=== PATIENT | male | born 1950 | race African-American/Black ===

== ENCOUNTER 2023-10-02 13:54 | Inpatient (IN) | payer MEDICARE, OTHER ==
[~2023-10-02] VITALS: Ht 165.1 cm; Wt 108.3 kg
[2023-10-02] VITALS (7 sets, daily range): BP systolic 124–149; BP diastolic 74–99; PULSE 67–92; RESP 13–20; O2SAT 97–100
[2023-10-02] MEDS: NOREPINEPHRINE 8 MG/250ML KIT 250 ML IV SCH (01:30)
[2023-10-02] MEDS: SODIUM CHLORIDE 0.9% 1,000 ML IVB ONE (14:00)
[2023-10-02] MEDS: NALOXONE HCL 0.4 MG/ML VIAL IV ONE (14:00)
[2023-10-02] MEDS: NALOXONE HCL 0.4 MG/ML VIAL ONE (14:37)
[2023-10-02] MEDS: NALOXONE HCL 1MG/ML 2ML SYRINGE ONE (14:37)
[2023-10-02] MEDS: PROPOFOL 100 ML IV ONE (14:39)
[2023-10-02 14:42] LABS: Basophils # (auto) 0.1 10 ^3/uL (0-0.2); Basophils % (auto) 0.6 % (0.0-2.0); Eosinophils # (auto) 0.2 10 ^3/uL (0-0.8); Eosinophils % (auto) 1.3 % (0.0-7.0); Hematocrit 43.1 % (41.0-53.0); Hemoglobin 13.8 g/dL (13.5-17.5); Lymphocytes # (auto) 5.5 10 ^3/uL (0.4-5.4); Lymphocytes % (auto) 47.6 % (10.0-50.0); Mean Corpuscular Hemoglobin 33.5 pg (28.0-32.0); Mean Corpuscular Hgb Conc. 31.9 g/dL (32.0-36.0); Mean Corpuscular Volume 104.7 fL (80.0-100.0); Monocytes # (auto) 0.9 10 ^3/uL (0-1.3); Monocytes % (auto) 7.4 % (0.0-12.0); Neutrophils % (auto) 43.1 % (37.0-80.0); Nucleated Red Blood Cells % 0.7 %; Red Blood Cells 4.11 10^6/uL (4.5-5.90); Red Cell Distribution Width 16.8 % (11.8-14.3); White Blood Cell 11.6 10^3/uL (4.4-10.8)
[2023-10-02] MEDS: PROPOFOL 100 ML IV SCH (14:45)
[2023-10-02] MEDS: NOREPINEPHRINE 8 MG/250ML KIT 250 ML IV ONE (15:05)
[2023-10-02 15:06] LABS: INR 1.11 (0.9-1.15); Partial Thromboplastin Time 28.2 SEC (24.5-34.5); Prothrombin Time 11.6 sec (9.3-11.8)
[2023-10-02 15:13] LABS: Lactic Acid w/Reflex 7.8 mmol/L (0.4-2.0)
[2023-10-02 15:13] LABS: Base Excess -6.2 mmol/L (-2.0-2.0)
[2023-10-02] MEDS: MIDAZOLAM DRIP 50 mg/50mL 50 ML IV SCH (15:30)
[2023-10-02] MEDS: MIDAZOLAM DRIP 50 mg/50mL 50 ML IV ONE (15:49)
[2023-10-02] MEDS: VANCOMYCIN 1GM/200ML 200 ML IV ONE (16:15)
[2023-10-02] MEDS: PIPERACILLIN-TAZOB 3.375GM 100 ML IV ONE (16:15)
[2023-10-02 18:32] LABS: Alkaline Phosphatase 67 U/L (46-116); Aspartate Aminotransferase 236 U/L (13-40); Blood Alcohol < 3.0 mg/dL (<10); Calcium 9.5 mg/dL (8.5-10.1); Chloride 93 mmol/L (98-107); Glucose 164 mg/dL (74-106); Sodium 136 mmol/L (136-145)
[2023-10-02 18:33] LABS: Bilirubin, Total 1.1 mg/dL (0.2-1.0); Total Protein 7.9 g/dL (5.7-8.2)
[2023-10-02 18:48] LABS: Alanine Aminotransferase 90 U/L (7-40); Albumin 4.4 g/dL (3.2-4.8); Potassium 4.7 mmol/L (3.5-5.1)
[2023-10-02 19:16] LABS: Anion Gap 22 (5-15); Carbon Dioxide 21 mmol/L (20-30)
[2023-10-02 19:29] LABS: BUN/Creatinine Ratio 6.1 (10.0-20.0); Blood Urea Nitrogen 33 mg/dL (9-23)
[2023-10-02 20:51] LABS: Urine Bacteria MOD /hpf (None Seen); Urine Blood 3+ /uL (Negative); Urine Clarity Ex.Turbid (Clear); Urine Color Dark-Brown (Yellow); Urine Mucus FEW (None Seen); Urine Protein, UAD 2+ (Negative); Urine Specific Gravity 1.017 (1.001-1.035); Urine Urobilinogen Normal (Negative); Urine WBC 2241 /hpf (0 - 3); Urine WBC Clumps PRESENT /hpf (None Seen)
[2023-10-02 21:07] LABS: Amphetamine Screen, Urine Neg (NEGATIVE); Barbiturate Scree,Urine Neg (NEGATIVE); Benzodiazephine Screen, Urine Neg (NEGATIVE); Cannabinoid Screen, Urine Neg (NEGATIVE); Cocaine Screen, Urine Neg (NEGATIVE); Opiate Scree,Urine Pos (NEGATIVE); Phencyclidine Screen, Urine Neg (NEGATIVE)
[2023-10-02] MEDS ORDERED: ACETAMINOPHEN 325 MG TAB PO PRN (21:45)
[2023-10-02] MEDS ORDERED: ONDANSETRON HCL 4 MG/2 ML VIAL IV PRN (21:45)
[2023-10-02] MEDS ORDERED: NITROGLYCERIN 0.4 MG SL TAB SL PRN (21:45)
[2023-10-02] MEDS ORDERED: DEXTROSE (50%) 50ML SYRG IV PRN (21:45)
[2023-10-02] MEDS ORDERED: MORPHINE SULFATE INJ 2 MG/ml SYRG IV PRN (21:45)
[2023-10-02 22:41] LABS: Alanine Aminotransferase 85 U/L (7-40); Alkaline Phosphatase 69 U/L (46-116); Anion Gap 13 (5-15); Aspartate Aminotransferase 301 U/L (13-40); BUN/Creatinine Ratio 6.1 (10.0-20.0); Blood Urea Nitrogen 33 mg/dL (9-23); Calcium 9.4 mg/dL (8.5-10.1); Carbon Dioxide 27 mmol/L (20-30); Chloride 94 mmol/L (98-107); Glucose 196 mg/dL (74-106); Potassium 4.7 mmol/L (3.5-5.1); Sodium 134 mmol/L (136-145)
[2023-10-02 22:42] LABS: Albumin 4.1 g/dL (3.2-4.8); Bilirubin, Total 1.3 mg/dL (0.2-1.0); Total Protein 7.5 g/dL (5.7-8.2)
[2023-10-02 22:47] LABS: Base Excess -0.1 mmol/L (-2.0-2.0)
[2023-10-03] VITALS (36 sets, daily range): BP systolic 64–126; BP diastolic 34–70; PULSE 88–151; RESP 20; TEMP 99.3–100.6; O2SAT 94–100
[2023-10-03] MEDS: DOPamine 1600MCG/ML D5W 250 ML IV SCH (02:00)
[2023-10-03] MEDS: ACCU-CHEK COMFORT CURVE STRIP VI SCH (02:30)
[2023-10-03] MEDS: InsuLIN REG 1unit/0.01ml Soln (100units/ml) SC SCH (02:31)
[2023-10-03 06:44] LABS: Alanine Aminotransferase 154 U/L (7-40); Albumin 4.1 g/dL (3.2-4.8); Alkaline Phosphatase 76 U/L (46-116); Anion Gap 15 (5-15); Aspartate Aminotransferase 391 U/L (13-40); BUN/Creatinine Ratio 7.3 (10.0-20.0); Bilirubin, Total 1.1 mg/dL (0.2-1.0); Blood Urea Nitrogen 42 mg/dL (9-23); Calcium 9.1 mg/dL (8.5-10.1); Carbon Dioxide 26 mmol/L (20-30); Chloride 92 mmol/L (98-107); Glucose 220 mg/dL (74-106); Potassium 4.2 mmol/L (3.5-5.1); Sodium 133 mmol/L (136-145); Total Protein 7.5 g/dL (5.7-8.2)
[2023-10-03 07:33] LABS: Basophils # (auto) 0 10 ^3/uL (0-0.2); Basophils % (auto) 0.1 % (0.0-2.0); Eosinophils # (auto) 0 10 ^3/uL (0-0.8); Hematocrit 49.1 % (41.0-53.0); Hemoglobin 16.1 g/dL (13.5-17.5); Lymphocytes # (auto) 0.8 10 ^3/uL (0.4-5.4); Lymphocytes % (auto) 5.7 % (10.0-50.0); Mean Corpuscular Hemoglobin 33.2 pg (28.0-32.0); Mean Corpuscular Hgb Conc. 32.8 g/dL (32.0-36.0); Mean Corpuscular Volume 101.3 fL (80.0-100.0); Neutrophils # (auto) 12.2 10 ^3/uL (1.6-8.6); Neutrophils % (auto) 87.2 % (37.0-80.0); Red Blood Cells 4.85 10^6/uL (4.5-5.90); Red Cell Distribution Width 16.7 % (11.8-14.3)
[2023-10-03 07:55] LABS: Base Excess -0.4 mmol/L (-2.0-2.0)
[2023-10-03] MEDS: ENOXAPARIN SOD 120 MG/0.8 ML SYRINGE SC ONE (08:13)
[2023-10-03] MEDS: LINEZOLID 600MG/300ML 300 ML IV SCH (09:19)
[2023-10-03] MEDS: PIPERACILLIN-TAZOB 3.375GM 100 ML IV SCH (10:31)
[2023-10-03 10:59] LABS: Lactic Acid w/Reflex 3.9 mmol/L (0.4-2.0)
[2023-10-03] MEDS: OPTISON 3ml Vial for INJ IV ONE (11:29)
[2023-10-03] MEDS: ACETAMINOPHEN 650 mg PER 20.3 mL UD GT ONE (11:33)
[2023-10-03] MEDS: ASPirin 81 mg TAB GT ONE (11:33)
[2023-10-03 11:41] LABS: Basophils # (auto) 0 10 ^3/uL (0-0.2); Basophils % (auto) 0.3 % (0.0-2.0); Eosinophils # (auto) 0 10 ^3/uL (0-0.8); Hematocrit 46.1 % (41.0-53.0); Hemoglobin 15.2 g/dL (13.5-17.5); Lymphocytes % (auto) 7.5 % (10.0-50.0); Mean Corpuscular Hemoglobin 33.2 pg (28.0-32.0); Mean Corpuscular Volume 100.5 fL (80.0-100.0); Monocytes # (auto) 0.9 10 ^3/uL (0-1.3); Monocytes % (auto) 6.6 % (0.0-12.0); Neutrophils # (auto) 11.8 10 ^3/uL (1.6-8.6); Neutrophils % (auto) 85.6 % (37.0-80.0); Nucleated Red Blood Cells % 0.6 %; Red Blood Cells 4.59 10^6/uL (4.5-5.90); White Blood Cell 13.8 10^3/uL (4.4-10.8)
[2023-10-03 11:56] LABS: INR 1.18 (0.9-1.15); Partial Thromboplastin Time 35.7 SEC (24.5-34.5); Prothrombin Time 12.4 sec (9.3-11.8)
[2023-10-03 12:10] LABS: Magnesium 2.2 mg/dL (1.6-2.6)
[2023-10-03] MEDS: HEPARIN DRIP/D5W 100UNITS/ML 250 ML IV SCH (17:59)
[2023-10-04] VITALS (101 sets, daily range): BP systolic 81–144; BP diastolic 44–71; PULSE 73–127; RESP 15–35; TEMP 99–99.9; O2SAT 75–100
[2023-10-04] MEDS: HEPARIN DRIP/D5W 100UNITS/ML 250 ML IV SCH ×3 (01:15→19:30)
[2023-10-04 01:18] LABS: INR 1.14 (0.9-1.15); Partial Thromboplastin Time 39.6 SEC (24.5-34.5)
[2023-10-04 04:39] LABS: Alanine Aminotransferase 102 U/L (7-40); Albumin 3.7 g/dL (3.2-4.8); Alkaline Phosphatase 68 U/L (46-116); Anion Gap 18 (5-15); Aspartate Aminotransferase 235 U/L (13-40); BUN/Creatinine Ratio 7.6 (10.0-20.0); Blood Urea Nitrogen 50 mg/dL (9-23); Calcium 9.5 mg/dL (8.7-10.4); Carbon Dioxide 25 mmol/L (20-30); Chloride 91 mmol/L (98-107); Glucose 172 mg/dL (74-106); Potassium 4.1 mmol/L (3.5-5.1); Sodium 134 mmol/L (136-145)
[2023-10-04 04:40] LABS: Bilirubin, Total 0.6 mg/dL (0.2-1.0); Total Protein 6.6 g/dL (5.7-8.2)
[2023-10-04 04:58] LABS: Basophils # (auto) 0 10 ^3/uL (0-0.2); Basophils % (auto) 0.2 % (0.0-2.0); Eosinophils # (auto) 0 10 ^3/uL (0-0.8); Eosinophils % (auto) 0.1 % (0.0-7.0); Hematocrit 46.9 % (41.0-53.0); Hemoglobin 15.5 g/dL (13.5-17.5); Lymphocytes # (auto) 1.3 10 ^3/uL (0.4-5.4); Lymphocytes % (auto) 9.2 % (10.0-50.0); Mean Corpuscular Hemoglobin 33.2 pg (28.0-32.0); Mean Corpuscular Volume 100.6 fL (80.0-100.0); Monocytes % (auto) 7.2 % (0.0-12.0); Neutrophils # (auto) 11.9 10 ^3/uL (1.6-8.6); Neutrophils % (auto) 83.3 % (37.0-80.0); Nucleated Red Blood Cells % 0.6 %; Red Blood Cells 4.66 10^6/uL (4.5-5.90); Red Cell Distribution Width 17.2 % (11.8-14.3); White Blood Cell 14.3 10^3/uL (4.4-10.8)
[2023-10-04] MEDS: SODIUM CHL 0.9% 1000 ML BAG XX ONE (07:00)
[2023-10-04] MEDS: ALBUMIN 25% 100 ML IV ONE (08:38)
[2023-10-04] MEDS ORDERED: VANCOMYCIN PER PHARMACY 0 MG IV SCH (09:45)
[2023-10-04 09:51] LABS: INR 1.11 (0.9-1.15); Partial Thromboplastin Time 42.5 SEC (24.5-34.5); Prothrombin Time 11.7 sec (9.3-11.8)
[2023-10-04] MEDS: AMIODARONE 450mg/250ml AE 250 ML IV ONE (10:18)
[2023-10-04] MEDS: AMIODARONE BOLUS KIT 100 ML IV ONE (10:46)
[2023-10-04 10:51] LABS: Base Excess -3.4 mmol/L (-2.0-2.0)
[2023-10-04] MEDS: AMIODARONE 450mg/250ml AE 250 ML IV SCH ×2 (10:55→17:08)
[2023-10-04] MEDS: PANTOPRAZOLE 40 MG/10 ML VIAL INJ IV SCH (13:24)
[2023-10-04] MEDS: PIPERACILLIN-TAZOB 3.375GM 100 ML IV SCH (14:15)
[2023-10-04] MEDS: ASPirin 81 mg TAB PO SCH (15:19)
[2023-10-04] MEDS: VANCOMYCIN 1GM/200ML 200 ML IV ONE (16:15)
[2023-10-04 18:49] LABS: INR 1.11 (0.9-1.15); Partial Thromboplastin Time 46.7 SEC (24.5-34.5); Prothrombin Time 11.7 sec (9.3-11.8)
[2023-10-05] VITALS (109 sets, daily range): BP systolic 90–138; BP diastolic 53–79; PULSE 71–90; RESP 16–32; TEMP 97.9–100.2; O2SAT 90–100
[2023-10-05] MEDS: ALBUTEROL SULF 2.5 MG/0.5ML(0.5%) NEB SOLN NEB PRN (00:49)
[2023-10-05] MEDS: IPRATROPIUM BROM 0.5 MG/2.5ML INH SOL NEB PRN (00:49)
[2023-10-05 02:05] LABS: Basophils # (auto) 0.1 10 ^3/uL (0-0.2); Basophils % (auto) 0.5 % (0.0-2.0); Eosinophils # (auto) 0 10 ^3/uL (0-0.8); Eosinophils % (auto) 0.3 % (0.0-7.0); Hematocrit 42.1 % (41.0-53.0); Hemoglobin 13.7 g/dL (13.5-17.5); Lymphocytes # (auto) 1.2 10 ^3/uL (0.4-5.4); Lymphocytes % (auto) 9.6 % (10.0-50.0); Mean Corpuscular Hemoglobin 32.8 pg (28.0-32.0); Mean Corpuscular Hgb Conc. 32.6 g/dL (32.0-36.0); Mean Corpuscular Volume 100.5 fL (80.0-100.0); Monocytes # (auto) 1.1 10 ^3/uL (0-1.3); Monocytes % (auto) 8.5 % (0.0-12.0); Neutrophils # (auto) 10.6 10 ^3/uL (1.6-8.6); Neutrophils % (auto) 81.1 % (37.0-80.0); Nucleated Red Blood Cells % 0.2 %; Red Blood Cells 4.19 10^6/uL (4.5-5.90); Red Cell Distribution Width 17.7 % (11.8-14.3)
[2023-10-05 03:52] LABS: Alanine Aminotransferase 68 U/L (7-40); Albumin 3.6 g/dL (3.2-4.8); Alkaline Phosphatase 69 U/L (46-116); Anion Gap 15 (5-15); Aspartate Aminotransferase 152 U/L (13-40); BUN/Creatinine Ratio 6.9 (10.0-20.0); Bilirubin, Total 0.4 mg/dL (0.2-1.0); Blood Urea Nitrogen 43 mg/dL (9-23); Calcium 9.5 mg/dL (8.7-10.4); Carbon Dioxide 24 mmol/L (20-30); Chloride 94 mmol/L (98-107); Glucose 154 mg/dL (74-106); Potassium 4.5 mmol/L (3.5-5.1); Sodium 133 mmol/L (136-145); Total Protein 6.6 g/dL (5.7-8.2)
[2023-10-05 07:48] LABS: Base Excess -0.3 mmol/L (-2.0-2.0)
[2023-10-05 09:44] LABS: INR 1.05 (0.9-1.15); Partial Thromboplastin Time 37.1 SEC (24.5-34.5); Prothrombin Time 11.1 sec (9.3-11.8)
[2023-10-05] MEDS: HEPARIN DRIP/D5W 100UNITS/ML 250 ML IV SCH ×2 (10:15→17:45)
[2023-10-05] MEDS ORDERED: TPN PER PHARMACY 0 ML IV SCH (12:45)
[2023-10-05 12:53] LABS: Magnesium 2.5 mg/dL (1.6-2.6)
[2023-10-05 12:54] LABS: Phosphorus 5.6 mg/dL (2.4-5.1)
[2023-10-05] MEDS: TPN PER PHARMACY IV NR (19:56)
[2023-10-06] VITALS (102 sets, daily range): BP systolic 55–158; BP diastolic 21–101; PULSE 66–95; RESP 16–39; TEMP 97.6–99.5; O2SAT 90–100
[2023-10-06 03:59] LABS: Basophils # (auto) 0 10 ^3/uL (0-0.2); Basophils % (auto) 0.3 % (0.0-2.0); Eosinophils # (auto) 0 10 ^3/uL (0-0.8); Eosinophils % (auto) 0.4 % (0.0-7.0); Hematocrit 35.9 % (41.0-53.0); Hemoglobin 11.8 g/dL (13.5-17.5); Lymphocytes % (auto) 9.9 % (10.0-50.0); Mean Corpuscular Hemoglobin 32.7 pg (28.0-32.0); Mean Corpuscular Hgb Conc. 32.8 g/dL (32.0-36.0); Mean Corpuscular Volume 99.9 fL (80.0-100.0); Monocytes % (auto) 9.5 % (0.0-12.0); Neutrophils # (auto) 8.4 10 ^3/uL (1.6-8.6); Neutrophils % (auto) 79.9 % (37.0-80.0); Nucleated Red Blood Cells % 0.1 %; Red Blood Cells 3.59 10^6/uL (4.5-5.90); Red Cell Distribution Width 17.1 % (11.8-14.3); White Blood Cell 10.5 10^3/uL (4.4-10.8)
[2023-10-06 04:13] LABS: Alanine Aminotransferase 47 U/L (7-40); Albumin 3.4 g/dL (3.2-4.8); Alkaline Phosphatase 58 U/L (46-116); Anion Gap 14 (5-15); Aspartate Aminotransferase 103 U/L (13-40); BUN/Creatinine Ratio 8.2 (10.0-20.0); Calcium 9.2 mg/dL (8.7-10.4); Carbon Dioxide 25 mmol/L (20-30); Chloride 91 mmol/L (98-107); Glucose 192 mg/dL (74-106); Magnesium 2.2 mg/dL (1.6-2.6); Potassium 4.2 mmol/L (3.5-5.1); Sodium 130 mmol/L (136-145)
[2023-10-06 04:14] LABS: Bilirubin, Total 0.4 mg/dL (0.2-1.0); Phosphorus 5.6 mg/dL (2.4-5.1); Total Protein 6.2 g/dL (5.7-8.2)
[2023-10-06 04:41] LABS: Blood Urea Nitrogen 59 mg/dL (9-23)
[2023-10-06 05:33] LABS: INR 1.03 (0.9-1.15); Partial Thromboplastin Time 67.4 SEC (24.5-34.5); Prothrombin Time 10.9 sec (9.3-11.8)
[2023-10-06] MEDS: SODIUM CHL 0.9% 1000 ML BAG XX ONE (07:00)
[2023-10-06 08:12] LABS: Base Excess -1.7 mmol/L (-2.0-2.0)
[2023-10-06 14:30] LABS: INR 0.97 (0.9-1.15); Partial Thromboplastin Time 27.7 SEC (24.5-34.5); Prothrombin Time 10.3 sec (9.3-11.8)
[2023-10-06] MEDS: HEPARIN SODIUM (PORCINE) 5000 UNITS/ML 1ML VIAL IV ONE (16:01)
[2023-10-06] MEDS: HEPARIN DRIP/D5W 100UNITS/ML 250 ML IV SCH (18:03)
[2023-10-06] MEDS ORDERED: [UNRECOGNIZED DRUG - OTHER] IV NR (20:00)
[2023-10-06] MEDS ORDERED: SODIUM CHLORIDE IV NR (20:00)
[2023-10-06] MEDS ORDERED: MAGNESIUM SULF IV NR (20:00)
[2023-10-06] MEDS ORDERED: POTASSIUM CHLORIDE IV NR (20:00)
[2023-10-06] MEDS: POTASSIUM CHLORIDE IV NR (20:09)
[2023-10-06] MEDS: [UNRECOGNIZED DRUG - OTHER] IV NR (20:09)
[2023-10-06] MEDS: MAGNESIUM SULF IV NR (20:09)
[2023-10-06] MEDS: SODIUM CHLORIDE IV NR (20:09)
[2023-10-06] MEDS: VANCOMYCIN 500 MG in D5W 5% 100 ML IV ONE (20:10)
[2023-10-06 22:14] LABS: INR 1.02 (0.9-1.15); Prothrombin Time 10.8 sec (9.3-11.8)
[2023-10-06 22:20] LABS: Partial Thromboplastin Time 75.1 SEC (24.5-34.5)
[2023-10-07] VITALS (103 sets, daily range): BP systolic 92–171; BP diastolic 28–72; PULSE 72–91; RESP 15–40; TEMP 97.3–98.9; O2SAT 79–100
[2023-10-07 03:38] LABS: Alanine Aminotransferase 39 U/L (7-40); Albumin 3.3 g/dL (3.2-4.8); Alkaline Phosphatase 58 U/L (46-116); Anion Gap 10 (5-15); Aspartate Aminotransferase 86 U/L (13-40); BUN/Creatinine Ratio 7.3 (10.0-20.0); Calcium 9.1 mg/dL (8.7-10.4); Carbon Dioxide 27 mmol/L (20-30); Chloride 96 mmol/L (98-107); Glucose 200 mg/dL (74-106); Magnesium 2.1 mg/dL (1.6-2.6); Potassium 3.5 mmol/L (3.5-5.1); Sodium 133 mmol/L (136-145)
[2023-10-07 03:39] LABS: Bilirubin, Total 0.4 mg/dL (0.2-1.0); Phosphorus 3.5 mg/dL (2.4-5.1); Total Protein 6.1 g/dL (5.7-8.2)
[2023-10-07 03:41] LABS: INR 1.04 (0.9-1.15)
[2023-10-07 03:44] LABS: Partial Thromboplastin Time 72.3 SEC (24.5-34.5)
[2023-10-07 03:45] LABS: Blood Urea Nitrogen 36 mg/dL (9-23)
[2023-10-07 07:15] LABS: Base Excess 2.4 mmol/L (-2.0-2.0)
[2023-10-07 08:47] LABS: Hepatitis B Surface Antigen Negative (Negative)
[2023-10-07 09:07] LABS: Hepatitis A Ab IgM Negative
[2023-10-07 09:08] LABS: Hepatitis B Core IgM Negative
[2023-10-07 09:26] LABS: INR 1.02 (0.9-1.15); Partial Thromboplastin Time 69.9 SEC (24.5-34.5); Prothrombin Time 10.8 sec (9.3-11.8)
[2023-10-07 09:26] LABS: Hepatitis C Antibody Reactive (Negative)
[2023-10-07] MEDS: AMIODARONE HCL 200 MG TAB PO ONE (12:07)
[2023-10-07] MEDS: ENOXAPARIN SOD 100 MG/1 ML SYRINGE SC SCH (12:07)
[2023-10-07] MEDS: CEFEPIME 1GM/ 50ML 50 ML IV SCH (16:54)
[2023-10-07] MEDS ORDERED: TPN PER PHARMACY IV NR (20:00)
[2023-10-07] MEDS: Nepro With Carb Steady 1 Liter Bottle GT SCH (21:53)
[2023-10-07] MEDS: AMIODARONE HCL 200 MG TAB PO SCH (22:19)
[2023-10-08] VITALS (111 sets, daily range): BP systolic 93–141; BP diastolic 35–64; PULSE 77–87; RESP 11–29; TEMP 97.9–99; O2SAT 98–100
[2023-10-08 04:00] LABS: Basophils # (auto) 0 10 ^3/uL (0-0.2); Basophils % (auto) 0.6 % (0.0-2.0); Eosinophils # (auto) 0 10 ^3/uL (0-0.8); Eosinophils % (auto) 0.3 % (0.0-7.0); Hematocrit 32.8 % (41.0-53.0); Hemoglobin 10.9 g/dL (13.5-17.5); Lymphocytes # (auto) 0.7 10 ^3/uL (0.4-5.4); Lymphocytes % (auto) 9.3 % (10.0-50.0); Mean Corpuscular Hemoglobin 33.3 pg (28.0-32.0); Mean Corpuscular Hgb Conc. 33.4 g/dL (32.0-36.0); Mean Corpuscular Volume 99.9 fL (80.0-100.0); Monocytes # (auto) 0.7 10 ^3/uL (0-1.3); Monocytes % (auto) 9.1 % (0.0-12.0); Neutrophils # (auto) 6.2 10 ^3/uL (1.6-8.6); Neutrophils % (auto) 80.7 % (37.0-80.0); Nucleated Red Blood Cells % 0.1 %; Red Blood Cells 3.29 10^6/uL (4.5-5.90); White Blood Cell 7.7 10^3/uL (4.4-10.8)
[2023-10-08 04:05] LABS: Alanine Aminotransferase 30 U/L (7-40); Albumin 3.4 g/dL (3.2-4.8); Alkaline Phosphatase 71 U/L (46-116); Anion Gap 12 (5-15); Aspartate Aminotransferase 107 U/L (13-40); BUN/Creatinine Ratio 8.4 (10.0-20.0); Bilirubin, Total 0.4 mg/dL (0.2-1.0); Calcium 9.1 mg/dL (8.5-10.1); Carbon Dioxide 25 mmol/L (20-30); Chloride 95 mmol/L (98-107); Glucose 138 mg/dL (74-106); Phosphorus 4.7 mg/dL (2.4-5.1); Potassium 4.2 mmol/L (3.5-5.1); Sodium 132 mmol/L (136-145); Total Protein 6.1 g/dL (5.7-8.2)
[2023-10-08 04:10] LABS: Blood Urea Nitrogen 49 mg/dL (9-23)
[2023-10-08 04:45] LABS: Magnesium 2.2 mg/dL (1.6-2.6)
[2023-10-08 07:01] LABS: Base Excess -0.7 mmol/L (-2.0-2.0)
[2023-10-08] MEDS: ENOXAPARIN SOD 100 MG/1 ML SYRINGE SC SCH (12:00)
[2023-10-09] VITALS (92 sets, daily range): BP systolic 105–170; BP diastolic 37–87; PULSE 73–96; RESP 16–29; TEMP 97.3–98; O2SAT 98–100
[2023-10-09 04:25] LABS: Basophils # (auto) 0 10 ^3/uL (0-0.2); Basophils % (auto) 0.3 % (0.0-2.0); Eosinophils # (auto) 0.1 10 ^3/uL (0-0.8); Eosinophils % (auto) 1.1 % (0.0-7.0); Hematocrit 32.3 % (41.0-53.0); Hemoglobin 10.6 g/dL (13.5-17.5); Lymphocytes # (auto) 0.7 10 ^3/uL (0.4-5.4); Lymphocytes % (auto) 9.4 % (10.0-50.0); Mean Corpuscular Hemoglobin 32.6 pg (28.0-32.0); Mean Corpuscular Hgb Conc. 32.8 g/dL (32.0-36.0); Mean Corpuscular Volume 99.5 fL (80.0-100.0); Monocytes # (auto) 0.9 10 ^3/uL (0-1.3); Monocytes % (auto) 12.1 % (0.0-12.0); Neutrophils # (auto) 5.7 10 ^3/uL (1.6-8.6); Neutrophils % (auto) 77.1 % (37.0-80.0); Nucleated Red Blood Cells % 0.1 %; Red Blood Cells 3.24 10^6/uL (4.5-5.90); Red Cell Distribution Width 17.1 % (11.8-14.3); White Blood Cell 7.4 10^3/uL (4.4-10.8)
[2023-10-09 04:32] LABS: Carbon Dioxide 26 mmol/L (20-30); Chloride 95 mmol/L (98-107); Potassium 4.8 mmol/L (3.5-5.1)
[2023-10-09 04:33] LABS: Anion Gap 11 (5-15); Sodium 132 mmol/L (136-145)
[2023-10-09 04:34] LABS: Calcium 9.5 mg/dL (8.5-10.1)
[2023-10-09 04:39] LABS: BUN/Creatinine Ratio 8.9 (10.0-20.0); Glucose 138 mg/dL (74-106)
[2023-10-09 04:40] LABS: Blood Urea Nitrogen 60 mg/dL (9-23)
[2023-10-09 06:43] LABS: Base Excess -0.1 mmol/L (-2.0-2.0)
[2023-10-09] MEDS: ATORVASTATIN 20 MG TAB GT ONE (10:14)
[2023-10-09] MEDS: SODIUM CHL 0.9% 1000 ML BAG XX ONE (17:00)
[2023-10-09] MEDS: VANCOMYCIN 1GM/200ML 200 ML IV ONE (20:32)
[2023-10-09] MEDS: ATORVASTATIN 20 MG TAB GT SCH (20:33)
[2023-10-10] VITALS (37 sets, daily range): BP systolic 103–175; BP diastolic 34–84; PULSE 73–99; RESP 15–22; TEMP 97.8–98.4; O2SAT 98–100
[2023-10-10 06:51] LABS: Base Excess 2.1 mmol/L (-2.0-2.0)
[2023-10-11] VITALS (45 sets, daily range): BP systolic 104–150; BP diastolic 27–63; PULSE 72–88; RESP 16–29; TEMP 97.6–98.4; O2SAT 93–100
[2023-10-11 04:05] LABS: Basophils # (auto) 0 10 ^3/uL (0-0.2); Basophils % (auto) 0.1 % (0.0-2.0); Eosinophils # (auto) 0 10 ^3/uL (0-0.8); Eosinophils % (auto) 0.4 % (0.0-7.0); Hematocrit 33.5 % (41.0-53.0); Hemoglobin 11.3 g/dL (13.5-17.5); Lymphocytes # (auto) 0.8 10 ^3/uL (0.4-5.4); Lymphocytes % (auto) 6.8 % (10.0-50.0); Mean Corpuscular Hemoglobin 33.4 pg (28.0-32.0); Mean Corpuscular Hgb Conc. 33.6 g/dL (32.0-36.0); Mean Corpuscular Volume 99.3 fL (80.0-100.0); Monocytes # (auto) 1.2 10 ^3/uL (0-1.3); Monocytes % (auto) 10.8 % (0.0-12.0); Neutrophils % (auto) 81.9 % (37.0-80.0); Nucleated Red Blood Cells % 0.1 %; Red Blood Cells 3.38 10^6/uL (4.5-5.90); Red Cell Distribution Width 17.1 % (11.8-14.3)
[2023-10-11 04:13] LABS: Anion Gap 14 (5-15); Carbon Dioxide 25 mmol/L (20-30); Chloride 95 mmol/L (98-107); Potassium 4.5 mmol/L (3.5-5.1); Sodium 134 mmol/L (136-145)
[2023-10-11 04:19] LABS: BUN/Creatinine Ratio 9.7 (10.0-20.0); Blood Urea Nitrogen 58 mg/dL (9-23); Glucose 134 mg/dL (74-106)
[2023-10-11 06:57] LABS: Base Excess -0.8 mmol/L (-2.0-2.0)
[2023-10-11] MEDS: SODIUM CHL 0.9% 1000 ML BAG XX ONE (07:00)
[2023-10-12] VITALS (44 sets, daily range): BP systolic 87–147; BP diastolic 34–69; PULSE 69–86; RESP 16–29; TEMP 97.5–98.1; O2SAT 93–100
[2023-10-12 03:58] LABS: Basophils # (auto) 0 10 ^3/uL (0-0.2); Basophils % (auto) 0.3 % (0.0-2.0); Eosinophils # (auto) 0 10 ^3/uL (0-0.8); Eosinophils % (auto) 0.3 % (0.0-7.0); Hematocrit 33.7 % (41.0-53.0); Lymphocytes # (auto) 0.8 10 ^3/uL (0.4-5.4); Lymphocytes % (auto) 6.7 % (10.0-50.0); Mean Corpuscular Hgb Conc. 32.5 g/dL (32.0-36.0); Mean Corpuscular Volume 98.4 fL (80.0-100.0); Monocytes % (auto) 8.3 % (0.0-12.0); Neutrophils # (auto) 10.4 10 ^3/uL (1.6-8.6); Neutrophils % (auto) 84.4 % (37.0-80.0); Red Blood Cells 3.43 10^6/uL (4.5-5.90); Red Cell Distribution Width 16.5 % (11.8-14.3); White Blood Cell 12.3 10^3/uL (4.4-10.8)
[2023-10-12 04:35] LABS: Chloride 96 mmol/L (98-107); Potassium 4.7 mmol/L (3.5-5.1); Sodium 135 mmol/L (136-145)
[2023-10-12 04:36] LABS: Anion Gap 15 (5-15); Calcium 9.8 mg/dL (8.5-10.1); Carbon Dioxide 24 mmol/L (20-30)
[2023-10-12 04:41] LABS: Glucose 118 mg/dL (74-106)
[2023-10-12 04:43] LABS: Blood Urea Nitrogen 71 mg/dL (9-23)
[2023-10-12] MEDS: ENOXAPARIN SOD 30 MG/0.3 ML SYRINGE SC ONE (12:45)
[2023-10-12] MEDS: ALBUMIN 25% 100 ML IV STA (17:50)
[2023-10-13] VITALS (60 sets, daily range): BP systolic 109–170; BP diastolic 30–65; PULSE 68–88; RESP 14–24; TEMP 98.2–99.2; O2SAT 91–99
[2023-10-13 04:04] LABS: Basophils # (auto) 0 10 ^3/uL (0-0.2); Basophils % (auto) 0.3 % (0.0-2.0); Eosinophils # (auto) 0 10 ^3/uL (0-0.8); Hematocrit 34.4 % (41.0-53.0); Hemoglobin 11.2 g/dL (13.5-17.5); Lymphocytes # (auto) 0.5 10 ^3/uL (0.4-5.4); Mean Corpuscular Hemoglobin 32.2 pg (28.0-32.0); Mean Corpuscular Hgb Conc. 32.5 g/dL (32.0-36.0); Monocytes # (auto) 0.5 10 ^3/uL (0-1.3); Monocytes % (auto) 3.9 % (0.0-12.0); Neutrophils # (auto) 11.8 10 ^3/uL (1.6-8.6); Neutrophils % (auto) 91.8 % (37.0-80.0); Nucleated Red Blood Cells % 0.1 %; Red Blood Cells 3.48 10^6/uL (4.5-5.90); White Blood Cell 12.8 10^3/uL (4.4-10.8)
[2023-10-13 04:13] LABS: Alanine Aminotransferase 22 U/L (7-40); Alkaline Phosphatase 87 U/L (46-116); Anion Gap 17 (5-15); BUN/Creatinine Ratio 8.7 (10.0-20.0); Calcium 9.8 mg/dL (8.5-10.1); Carbon Dioxide 22 mmol/L (20-30); Chloride 95 mmol/L (98-107); Glucose 141 mg/dL (74-106); Potassium 4.4 mmol/L (3.5-5.1); Sodium 134 mmol/L (136-145)
[2023-10-13 04:14] LABS: Albumin 3.6 g/dL (3.2-4.8); Aspartate Aminotransferase 91 U/L (13-40); Bilirubin, Total 0.4 mg/dL (0.2-1.0); Total Protein 7.2 g/dL (5.7-8.2)
[2023-10-13 04:16] LABS: Blood Urea Nitrogen 41 mg/dL (9-23)
[2023-10-13 07:19] LABS: Base Excess 0.9 mmol/L (-2.0-2.0)
[2023-10-13] MEDS ORDERED: ENOXAPARIN SOD 30 MG/0.3 ML SYRINGE SC SCH (10:00)
[2023-10-13] MEDS: ENOXAPARIN SOD 30 MG/0.3 ML SYRINGE SC ONE (14:30)
[2023-10-14] VITALS (114 sets, daily range): BP systolic 108–176; BP diastolic 28–109; PULSE 64–82; RESP 10–30; TEMP 96.8–98.1; O2SAT 90–100
[2023-10-14 04:14] LABS: Basophils # (auto) 0.1 10 ^3/uL (0-0.2); Basophils % (auto) 0.5 % (0.0-2.0); Eosinophils # (auto) 0 10 ^3/uL (0-0.8); Eosinophils % (auto) 0.4 % (0.0-7.0); Hematocrit 33.6 % (41.0-53.0); Hemoglobin 11.1 g/dL (13.5-17.5); Lymphocytes # (auto) 0.9 10 ^3/uL (0.4-5.4); Lymphocytes % (auto) 6.7 % (10.0-50.0); Mean Corpuscular Hemoglobin 32.5 pg (28.0-32.0); Mean Corpuscular Hgb Conc. 33.1 g/dL (32.0-36.0); Mean Corpuscular Volume 98.2 fL (80.0-100.0); Monocytes % (auto) 7.3 % (0.0-12.0); Neutrophils # (auto) 11.6 10 ^3/uL (1.6-8.6); Neutrophils % (auto) 85.1 % (37.0-80.0); Red Blood Cells 3.42 10^6/uL (4.5-5.90); Red Cell Distribution Width 17.1 % (11.8-14.3); White Blood Cell 13.6 10^3/uL (4.4-10.8)
[2023-10-14 04:24] LABS: INR 1.04 (0.9-1.15); Partial Thromboplastin Time 28.5 SEC (24.5-34.5)
[2023-10-14 07:03] LABS: Base Excess -0.9 mmol/L (-2.0-2.0)
[2023-10-14] MEDS: ENOXAPARIN SOD 30 MG/0.3 ML SYRINGE SC SCH (07:45)
[2023-10-14] MEDS: LIDOCAINE 1%-Mpf/Epinephrine 1:200,000 30ml VIAL ONE (10:39)
[2023-10-14] MEDS: BUPIVACAINE 0.25% INJ 50ML VIAL ONE (10:39)
[2023-10-14] MEDS ORDERED: ROCURONIUM 10MG/ML 10ML VIAL IV ONE (11:05)
[2023-10-14] MEDS ORDERED: ceFAZolin 1GM VL ONE (11:06)
[2023-10-14] MEDS: hydrALAZINE HCL 20 MG/ML VL ONE (12:34)
[2023-10-14] MEDS: hydrALAZINE HCL 20 MG/ML VL IV PRN (12:34)
[2023-10-15] VITALS (64 sets, daily range): BP systolic 107–154; BP diastolic 30–65; PULSE 70–88; RESP 15–27; TEMP 97.9–98.6; O2SAT 94–100
[2023-10-15 06:50] LABS: Base Excess 0.3 mmol/L (-2.0-2.0)
[2023-10-15 09:43] LABS: Alanine Aminotransferase 12 U/L (7-40); Albumin 3.4 g/dL (3.2-4.8); Alkaline Phosphatase 78 U/L (46-116); Anion Gap 13 (5-15); Aspartate Aminotransferase 93 U/L (13-40); BUN/Creatinine Ratio 10.4 (10.0-20.0); Bilirubin, Total 0.3 mg/dL (0.2-1.0); Blood Urea Nitrogen 68 mg/dL (9-23); Calcium 9.6 mg/dL (8.5-10.1); Carbon Dioxide 24 mmol/L (20-30); Chloride 98 mmol/L (98-107); Glucose 134 mg/dL (74-106); Potassium 5.1 mmol/L (3.5-5.1); Sodium 135 mmol/L (136-145); Total Protein 7.1 g/dL (5.7-8.2)
[2023-10-15 09:49] LABS: Basophils # (auto) 0 10 ^3/uL (0-0.2); Basophils % (auto) 0.2 % (0.0-2.0); Eosinophils # (auto) 0 10 ^3/uL (0-0.8); Eosinophils % (auto) 0.2 % (0.0-7.0); Hematocrit 34.7 % (41.0-53.0); Lymphocytes # (auto) 0.6 10 ^3/uL (0.4-5.4); Lymphocytes % (auto) 4.9 % (10.0-50.0); Mean Corpuscular Hemoglobin 31.6 pg (28.0-32.0); Mean Corpuscular Hgb Conc. 31.7 g/dL (32.0-36.0); Mean Corpuscular Volume 99.6 fL (80.0-100.0); Monocytes # (auto) 0.9 10 ^3/uL (0-1.3); Monocytes % (auto) 6.7 % (0.0-12.0); Neutrophils # (auto) 11.7 10 ^3/uL (1.6-8.6); Red Blood Cells 3.48 10^6/uL (4.5-5.90); Red Cell Distribution Width 16.8 % (11.8-14.3); White Blood Cell 13.3 10^3/uL (4.4-10.8)
[2023-10-15] MEDS: ALBUMIN 25% 100 ML IV ONE (12:04)
[2023-10-15] MEDS: SODIUM CHL 0.9% 1000 ML BAG XX ONE (12:04)
[2023-10-16] VITALS (58 sets, daily range): BP systolic 105–151; BP diastolic 46–71; PULSE 78–93; RESP 14–27; TEMP 97.6–99.2; O2SAT 91–100
[2023-10-16 04:14] LABS: Basophils # (auto) 0 10 ^3/uL (0-0.2); Basophils % (auto) 0.3 % (0.0-2.0); Eosinophils # (auto) 0 10 ^3/uL (0-0.8); Eosinophils % (auto) 0.4 % (0.0-7.0); Hematocrit 32.6 % (41.0-53.0); Hemoglobin 10.9 g/dL (13.5-17.5); Lymphocytes # (auto) 0.6 10 ^3/uL (0.4-5.4); Lymphocytes % (auto) 4.9 % (10.0-50.0); Mean Corpuscular Hemoglobin 32.9 pg (28.0-32.0); Mean Corpuscular Hgb Conc. 33.4 g/dL (32.0-36.0); Mean Corpuscular Volume 98.7 fL (80.0-100.0); Monocytes # (auto) 0.9 10 ^3/uL (0-1.3); Monocytes % (auto) 6.7 % (0.0-12.0); Neutrophils # (auto) 11.4 10 ^3/uL (1.6-8.6); Neutrophils % (auto) 87.7 % (37.0-80.0); Red Cell Distribution Width 16.7 % (11.8-14.3)
[2023-10-16 04:19] LABS: Chloride 97 mmol/L (98-107); Sodium 137 mmol/L (136-145)
[2023-10-16 04:20] LABS: Anion Gap 13 (5-15); Calcium 9.9 mg/dL (8.5-10.1); Carbon Dioxide 27 mmol/L (20-30)
[2023-10-16 04:25] LABS: BUN/Creatinine Ratio 8.8 (10.0-20.0); Glucose 130 mg/dL (74-106)
[2023-10-16 04:34] LABS: Blood Urea Nitrogen 41 mg/dL (9-23)
[2023-10-16 07:14] LABS: Base Excess -0.2 mmol/L (-2.0-2.0)
[2023-10-16 09:10] LABS: INR 1.07 (0.9-1.15); Partial Thromboplastin Time 28.5 SEC (24.5-34.5); Prothrombin Time 11.3 sec (9.3-11.8)
[2023-10-16] MEDS: Nepro With Carb Steady 1 Liter Bottle GT SCH (13:34)
[2023-10-16] MEDS: Pro-Stat SF 30ml Vanilla GT SCH (13:34)
[2023-10-17] VITALS (105 sets, daily range): BP systolic 42–223; BP diastolic 11–185; PULSE 46–158; RESP 12–96; TEMP 97.8–98.7; O2SAT 28–100
[2023-10-17 05:38] LABS: Basophils # (auto) 0 10 ^3/uL (0-0.2); Eosinophils # (auto) 0 10 ^3/uL (0-0.8); Eosinophils % (auto) 0.1 % (0.0-7.0); Hematocrit 34.2 % (41.0-53.0); Hemoglobin 11.2 g/dL (13.5-17.5); Lymphocytes # (auto) 0.6 10 ^3/uL (0.4-5.4); Lymphocytes % (auto) 3.3 % (10.0-50.0); Mean Corpuscular Hemoglobin 32.1 pg (28.0-32.0); Mean Corpuscular Hgb Conc. 32.7 g/dL (32.0-36.0); Mean Corpuscular Volume 98.2 fL (80.0-100.0); Monocytes # (auto) 1.1 10 ^3/uL (0-1.3); Monocytes % (auto) 6.8 % (0.0-12.0); Neutrophils # (auto) 15.1 10 ^3/uL (1.6-8.6); Neutrophils % (auto) 89.8 % (37.0-80.0); Red Blood Cells 3.48 10^6/uL (4.5-5.90); Red Cell Distribution Width 16.5 % (11.8-14.3); White Blood Cell 16.8 10^3/uL (4.4-10.8)
[2023-10-17 05:49] LABS: Chloride 98 mmol/L (98-107); Potassium 3.9 mmol/L (3.5-5.1); Sodium 137 mmol/L (136-145)
[2023-10-17 05:50] LABS: Anion Gap 13 (5-15); Calcium 9.9 mg/dL (8.5-10.1); Carbon Dioxide 26 mmol/L (20-30)
[2023-10-17 05:55] LABS: BUN/Creatinine Ratio 10.6 (10.0-20.0); Glucose 151 mg/dL (74-106)
[2023-10-17 05:57] LABS: Blood Urea Nitrogen 60 mg/dL (9-23)
[2023-10-17] MEDS: SODIUM CHL 0.9% 1000 ML BAG XX ONE (07:00)
[2023-10-17 08:32] LABS: Base Excess -1.2 mmol/L (-2.0-2.0)
[2023-10-17] MEDS: VASOPRESSIN 20 UNITS in SODIUM CHL 0.9% 99 ML IV SCH (14:01)
[2023-10-17] MEDS: VASOPRESSIN 20 UNIT/ML ONE (14:02)
[2023-10-17] MEDS: ATROPINE SULF 1 MG/10ml SYR IV ONE (14:08)
[2023-10-17] MEDS: PHENYLEPHRINE IV 250 ML IV SCH (14:17)
[2023-10-17] MEDS: PHENYLEPHRINE IV 250 ML IV ONE (14:17)
[2023-10-17] MEDS: EPINEPHrine HCL 250 ML IV ONE (14:28)
[2023-10-17] MEDS: EPINEPHrine HCL 250 ML IV SCH (14:28)
[2023-10-17 14:39] LABS: Basophils # (auto) 0.1 10 ^3/uL (0-0.2); Basophils % (auto) 0.6 % (0.0-2.0); Lymphocytes # (auto) 3.3 10 ^3/uL (0.4-5.4); Neutrophils % (auto) 77.1 % (37.0-80.0); Nucleated Red Blood Cells % 0.1 %
[2023-10-17 14:41] LABS: Eosinophils # (auto) 0 10 ^3/uL (0-0.8); Eosinophils % (auto) 0.2 % (0.0-7.0); Hematocrit 32.3 % (41.0-53.0); Mean Corpuscular Hemoglobin 31.5 pg (28.0-32.0); Mean Corpuscular Hgb Conc. 30.8 g/dL (32.0-36.0); Mean Corpuscular Volume 102.2 fL (80.0-100.0); Monocytes # (auto) 1.5 10 ^3/uL (0-1.3); Monocytes % (auto) 7.1 % (0.0-12.0); Neutrophils # (auto) 16.9 10 ^3/uL (1.6-8.6); Red Blood Cells 3.16 10^6/uL (4.5-5.90); Red Cell Distribution Width 17.5 % (11.8-14.3); White Blood Cell 21.9 10^3/uL (4.4-10.8)
[2023-10-17 14:41] LABS: Base Excess -11.2 mmol/L (-2.0-2.0)
[2023-10-17] MEDS: SODIUM BICARB 8.4% 50Meq/50ml SYR INJ ONE (14:51)
[2023-10-17 14:52] LABS: Anion Gap 23 (5-15); Carbon Dioxide 21 mmol/L (20-30); Chloride 100 mmol/L (98-107); Potassium 4.5 mmol/L (3.5-5.1); Sodium 144 mmol/L (136-145)
[2023-10-17 14:53] LABS: Calcium 9.2 mg/dL (8.5-10.1)
[2023-10-17 14:58] LABS: Blood Urea Nitrogen 63 mg/dL (9-23); Magnesium 2.7 mg/dL (1.6-2.6)
[2023-10-17 14:59] LABS: Glucose 287 mg/dL (74-106)
[2023-10-17] MEDS: AMIODARONE HCL (50 MG/ ML) 3 ML VIAL IV PRN (15:11)
[2023-10-17] MEDS: SODIUM CHLORIDE 0.9% 200 ML IV ONE (15:24)
[2023-10-17] MEDS: SODIUM BICARB 8.4% 50Meq/50ml SYR Vial IV ONE (15:24)
[2023-10-17] MEDS: SODIUM BICARB 50mEq/50ml Vial 150 ML in D5W 5% 1,000 ML IV SCH (15:25)
[2023-10-17] MEDS: fentaNYL Drip 2500mCg/250mlNS 250 ML IV SCH (15:36)
[2023-10-17] MEDS: fentaNYL Drip 2500mCg/250mlNS 250 ML IV ONE (15:50)
[2023-10-17] MEDS: PHENYLEPHRINE INJ 80 MG in SODIUM CHL 0.9% 242 ML IV SCH (19:31)
[2023-10-17] MEDS: NOREPINEPHRINE BITARTRATE 32 MG in SODIUM CHL 0.9% 218 ML IV SCH (19:31)
[2023-10-17] MEDS: EPOETIN ALFA-EPBX 4,000 UNIT/ML VIAL SC ONE (21:36)
[2023-10-18] VITALS (93 sets, daily range): BP systolic 49–218; BP diastolic 12–133; PULSE 80–107; RESP 15–20; TEMP 97.1–99.3; O2SAT 73–100
[2023-10-18 01:15] LABS: Base Excess -1.7 mmol/L (-2.0-2.0)
[2023-10-18 09:25] LABS: Alanine Aminotransferase 907 U/L (7-40); Albumin 3.3 g/dL (3.2-4.8); Alkaline Phosphatase 121 U/L (46-116); Anion Gap 14 (5-15); BUN/Creatinine Ratio 10.7 (10.0-20.0); Bilirubin, Total 0.7 mg/dL (0.2-1.0); Blood Urea Nitrogen 58 mg/dL (9-23); Calcium 9.5 mg/dL (8.5-10.1); Carbon Dioxide 29 mmol/L (20-30); Chloride 96 mmol/L (98-107); Glucose 206 mg/dL (74-106); Potassium 4.8 mmol/L (3.5-5.1); Sodium 139 mmol/L (136-145); Total Protein 7.2 g/dL (5.7-8.2)
[2023-10-18] MEDS ORDERED: CEFEPIME 1GM/ 50ML 50 ML IV ONE (09:30)
[2023-10-18 09:36] LABS: Aspartate Aminotransferase 3783 U/L (13-40)
[2023-10-18 10:48] LABS: Base Excess 5.8 mmol/L (-2.0-2.0)
[2023-10-18] MEDS: CEFEPIME 1GM/ 50ML 50 ML IV SCH (10:51)
[2023-10-18] MEDS: HYDROCORTISONE SOD SUCC 100 MG/2ML INJ VIAL IV ONE (11:32)
[2023-10-18] MEDS: HYDROCORTISONE SOD SUCC 100 MG/2ML INJ VIAL IV SCH (21:47)
[2023-10-19] VITALS (107 sets, daily range): BP systolic 93–207; BP diastolic 16–83; PULSE 64–99; RESP 5–26; TEMP 97–98.8; O2SAT 71–100
[2023-10-19] MEDS ORDERED: ATROPINE SULF 1 MG/10ml SYR IM ONE (04:49)
[2023-10-19] MEDS ORDERED: AMIODARONE HCL (50 MG/ ML) 3 ML VIAL IV ONE (04:49)
[2023-10-19 06:39] LABS: Basophils # (auto) 0 10 ^3/uL (0-0.2); Basophils % (auto) 0.3 % (0.0-2.0); Eosinophils # (auto) 0 10 ^3/uL (0-0.8); Eosinophils % (auto) 0.1 % (0.0-7.0); Hemoglobin 11.1 g/dL (13.5-17.5); Lymphocytes # (auto) 0.6 10 ^3/uL (0.4-5.4); Lymphocytes % (auto) 4.1 % (10.0-50.0); Mean Corpuscular Hemoglobin 32.2 pg (28.0-32.0); Mean Corpuscular Hgb Conc. 32.8 g/dL (32.0-36.0); Mean Corpuscular Volume 98.3 fL (80.0-100.0); Monocytes % (auto) 6.7 % (0.0-12.0); Neutrophils # (auto) 13.6 10 ^3/uL (1.6-8.6); Neutrophils % (auto) 88.8 % (37.0-80.0); Nucleated Red Blood Cells % 0.1 %; Red Blood Cells 3.46 10^6/uL (4.5-5.90); White Blood Cell 15.4 10^3/uL (4.4-10.8)
[2023-10-19 06:52] LABS: Chloride 92 mmol/L (98-107); Potassium 4.4 mmol/L (3.5-5.1); Sodium 138 mmol/L (136-145)
[2023-10-19 06:53] LABS: Anion Gap 13 (5-15); Calcium 9.6 mg/dL (8.5-10.1); Carbon Dioxide 33 mmol/L (20-30)
[2023-10-19 06:58] LABS: BUN/Creatinine Ratio 13.4 (10.0-20.0); Glucose 238 mg/dL (74-106)
[2023-10-19 06:59] LABS: Blood Urea Nitrogen 76 mg/dL (9-23)
[2023-10-19] MEDS: SODIUM CHL 0.9% 1000 ML BAG XX ONE (07:00)
[2023-10-19 09:04] LABS: Base Excess 8.1 mmol/L (-2.0-2.0)
[2023-10-19] MEDS: ENOXAPARIN SOD 100 MG/1 ML SYRINGE SC SCH (10:21)
[2023-10-19] MEDS ORDERED: EPINEPHrine HCL 1 MG/10 ML SYRG ONE (23:59)
[2023-10-20] MEDS ORDERED: CALCIUM CHLOR(10%) 100MG/ML 10ML SYRINGE IV ONE (04:49)
[2023-10-20] MEDS ORDERED: SODIUM CHL 0.9% 1000 ML BAG XX ONE (07:00)
== END 2023-10-20 04:50 | DRG 4 ==
LOC: EDBD 13:54 → ER 13:54 → TELE 21:44 → ICU WEST 10-03 17:07 → DOU IN ICU 10-16 04:04 → ICU CENTRL 10-17 20:42
PROVIDERS: ADMIT Internal Medicine Pulmonary Disease; ATTEND Internal Medicine Pulmonary Disease
PROC: 5A1955Z Respiratory Ventilation, Greater than 96 Consecutive Hours (ICD-10-PCS; principal; 2023-10-02)
PROC: 0BH17EZ Insertion of Endotracheal Airway into Trachea, Via Natural or Artificial Opening (ICD-10-PCS; 2023-10-02)
PROC: 5A12012 Performance of Cardiac Output, Single, Manual (ICD-10-PCS; 2023-10-03)
PROC: 02HV33Z Insertion of Infusion Device into Superior Vena Cava, Percutaneous Approach (ICD-10-PCS; 2023-10-04)
PROC: B548ZZA Ultrasonography of Superior Vena Cava, Guidance (ICD-10-PCS; 2023-10-04)
PROC: 5A1D70Z Performance of Urinary Filtration, Intermittent, Less than 6 Hours Per Day (ICD-10-PCS; 2023-10-04)
PROC: 05H933Z Insertion of Infusion Device into Right Brachial Vein, Percutaneous Approach (ICD-10-PCS; 2023-10-06)
PROC: B54MZZA Ultrasonography of Right Upper Extremity Veins, Guidance (ICD-10-PCS; 2023-10-06)
PROC: 5A1D70Z Performance of Urinary Filtration, Intermittent, Less than 6 Hours Per Day (ICD-10-PCS; 2023-10-06)
PROC: 5A1D70Z Performance of Urinary Filtration, Intermittent, Less than 6 Hours Per Day (ICD-10-PCS; 2023-10-09)
PROC: 5A1D70Z Performance of Urinary Filtration, Intermittent, Less than 6 Hours Per Day (ICD-10-PCS; 2023-10-12)
PROC: 0B110F4 Bypass Trachea to Cutaneous with Tracheostomy Device, Open Approach (ICD-10-PCS; 2023-10-14)
PROC: 5A1D70Z Performance of Urinary Filtration, Intermittent, Less than 6 Hours Per Day (ICD-10-PCS; 2023-10-15)
PROC: 5A12012 Performance of Cardiac Output, Single, Manual (ICD-10-PCS; 2023-10-17)
PROC: 5A1D70Z Performance of Urinary Filtration, Intermittent, Less than 6 Hours Per Day (ICD-10-PCS; 2023-10-17)
PROC: 5A12012 Performance of Cardiac Output, Single, Manual (ICD-10-PCS; 2023-10-19)
PROC: 0D9670Z Drainage of Stomach with Drainage Device, Via Natural or Artificial Opening (ICD-10-PCS; 2023-10-19)
DX: A41.9 Sepsis, unspecified organism (principal); G93.41 Metabolic encephalopathy; I21.19 ST elevation (STEMI) myocardial infarction involving other coronary artery of inferior wall; I50.23 Acute on chronic systolic (congestive) heart failure; N18.6 End stage renal disease; J96.01 Acute respiratory failure with hypoxia; R65.21 Severe sepsis with septic shock; I13.2 Hypertensive heart and chronic kidney disease with heart failure and with stage 5 chronic kidney disease, or end stage renal disease; G93.1 Anoxic brain damage, not elsewhere classified; E87.20 Acidosis, unspecified; N39.0 Urinary tract infection, site not specified; I47.10 Supraventricular tachycardia, unspecified; K92.2 Gastrointestinal hemorrhage, unspecified; N25.81 Secondary hyperparathyroidism of renal origin; I42.0 Dilated cardiomyopathy; Z99.11 Dependence on respirator [ventilator] status; K62.5 Hemorrhage of anus and rectum; I46.9 Cardiac arrest, cause unspecified; I25.5 Ischemic cardiomyopathy; Z66 Do not resuscitate; E11.22 Type 2 diabetes mellitus with diabetic chronic kidney disease; I48.0 Paroxysmal atrial fibrillation; I25.10 Atherosclerotic heart disease of native coronary artery without angina pectoris; E66.01 Morbid (severe) obesity due to excess calories; D64.9 Anemia, unspecified; F17.200 Nicotine dependence, unspecified, uncomplicated; I07.1 Rheumatic tricuspid insufficiency; I27.20 Pulmonary hypertension, unspecified; Z68.37 Body mass index [BMI] 37.0-37.9, adult; Z99.2 Dependence on renal dialysis; Z95.5 Presence of coronary angioplasty implant and graft; Z79.899 Other long term (current) drug therapy
CPT/HCPCS: 36415; 36556; 36600; 70450; 70551; 71045; 71260; 74177; 80048; 80053; 80061; 80074; 80202; 80307; 80320; 81001; 82040; 82140; 82805; 82962; 83036; 83605; 83735; 83880; 84100; 84132; 84443; 84478; 84484; 85025; 85379; 85610; 85730; 86703; 87040; 87070; 87077; 87081; 87086; 87186; 87205; 90935; 93005; 93306; 93925; 93970; 94002; 94003; 94640; 95819; 96365; 96366; 96367; 96372; 96375; A4605; C9113; G0378; J0171; J0690; J1642; J1815; J2250; J2543; J2704; J3490; J7060; J7131; P9047; Q9956